=== PATIENT | female | born 1980 | race Caucasian/White ===

== ENCOUNTER 2017-04-29 11:17 | Day surgery (SDC) | payer OTHER ==
[2017-04-29] VITALS (10 sets, daily range): BP systolic 96–118; BP diastolic 43–68; PULSE 63–84; RESP 13–18; Ht 162.6 cm; Wt 80.1 kg
[~2017-04-29] VITALS: Ht 162.6 cm; Wt 80.1 kg
[~2017-04-29 11:17] MED LIST: CEPH-443 PO; HYDR-3498 PO
[2017-04-29] MEDS ORDERED: KETOROLAC 30 MG INJ IV PRN (12:30)
[2017-04-29] MEDS ORDERED: IBUPROFEN 600 MG TAB PO PRN (12:30)
--- NOTE | 2017-04-29 12:32 | PDOCDIS ---
Discharge Instructions CONDITION Patient Condition: Good HOME CARE INSTRUCTIONS: Diet Instructions: Regular ACTIVITY: Activity Restrictions: No Sexual Activity Bathing Restrictions: Shower FOLLOW UP/APPOINTMENTS Follow-up Plan Appointment clinic in 1 week for post D&C check SCHOOL/WORK RELEASE May return to School/Work with: No Restrictions NORTH LEW MD Apr 29, 2017 12:32
[2017-04-29] MEDS ORDERED: PROPOFOL 20 ML ONE (12:43)
[2017-04-29] MEDS ORDERED: ONDANSETRON 4 MG INJ ONE (12:44)
[2017-04-29] MEDS ORDERED: FENTAnyl 50 MCG/ML VIAL ONE (12:44)
[2017-04-29] MEDS ORDERED: MIDAZOLAM 1 MG/ML 2 ML INJ ONE (12:44)
[2017-04-29] MEDS ORDERED: KETOROLAC 30 MG INJ ONE (12:58)
[2017-04-29] MEDS ORDERED: METOCLOPRAMIDE 10 MG INJ ONE (12:58)
[2017-04-29] MEDS ORDERED: OXYTOCIN 10 UNIT INJ ONE ×2 (13:13→13:14)
[2017-04-29] MEDS ORDERED: EPHEDrine SULFATE 50 MG/5 ML SYG ONE (13:16)
--- NOTE | 2017-04-29 13:38 | OPR ---
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 Weighted speculum inserted into the vagina anterior cervical lip grasped with Suman tenaculum uterine cavity sounded measured 11 cm cervical dilatation further advanced with Hanks dilator, suction curettage performed by using Vacurette #9 which followed with medium-sized curette, all the specimen collected submitted to the pathology patient received 30 units of Pitocin during the procedure at the end of the procedure uterus was massaged it seemed to be firm, estimated blood loss approximately 50 cc,patient tolerated procedure well transferred to recovery room in good condition. Procedure Date: Apr 29, 2017 Preoperative Diagnosis Missed Postoperative Diagnosis Incomplete Operation Performed Dilatation and suction curettage Surgeon: NORTH LEW MD Anesthesia Type: general Anesthesiologist: APOLONIA GRIFFITH MD Estimated Blood Loss: 10 - 50 ml's Transfusion Required: yes Grafts/Implants: none Complications: no Pt Condition Post Procedure: stable Disposition: other (Same day surgery) Operative\Procedure Findings Products of conception Procedure Description Dilatation and suction curettage NORTH LEW MD Apr 29, 2017 13:32
== END 2017-04-29 15:25 | disposition home or self-care (01) ==
LOC: SDS 11:17
PROVIDERS: ATTEND Obstetrics & Gynecology
DX: O03.4 Incomplete spontaneous abortion without complication (principal)
CPT/HCPCS: 59812; 88305; J1885; J2250; J2405; J2590; J2765; J3010; Z7512; Z7610

== ENCOUNTER 2017-05-06 12:57 | Emergency (ER) | payer OTHER ==
[~2017-05-06] VITALS: Ht 157.5 cm; Wt 98.5 kg
[2017-05-06 13:04] VITALS: Ht 157.5 cm; Wt 98.5 kg
--- NOTE | 2017-05-06 15:33 | ERA ---
ER Documentation Chief Complaint Date/Time DATE: 05/06/17 TIME: 15:[address] X 2 DAYS HPI There is 6-year-old female presents with a chief complaint of sinus congestion, cough, pharyngitis 3 days. Patient has taken ibuprofen with minimal to moderate relief. Denies any recent travel. Complains of mild fever. Denies difficulty breathing, dysphagia, change in voice, drooling, fatigue, oral swelling, ear pain/discomfort, or meningismus. Denies drug use or alcohol abuse. Nursing notes have been reviewed and are consistent with history given. ROS All systems reviewed and are negative except as per history of present illness. Medications Home Meds Discontinued Scripts Hydrocodone Bit-Acetaminophen* (Erwin*) 5-325 Mg Tab, 1 TAB PO Q6 Y for PAIN, # 7 TAB Prov:JAYLENE QUAN DO 04/29/15 Cephalexin* (Keflex*) 500 Mg Capsule, 500 MG PO BID for 7 Days, CAP Prov:FRANKLIN AUSTIN 04/28/15 Allergies Allergies: Coded Allergies: No Known Allergy (Unverified , 04/29/17) PMhx/Soc Medical and Surgical Hx: pt denies Medical Hx, pt denies Surgical Hx History of Surgery: Yes (d&c) Anesthesia Reaction: No Hx Neurological Disorder: No Hx Respiratory Disorders: No Hx Cardiac Disorders: No Hx Psychiatric Problems: No Hx Miscellaneous Medical Probl: No Hx Alcohol Use: No Hx Substance Use: No Hx Tobacco Use: Yes (2 cigg daily) Smoking Status: Current some day smoker Physical Exam Vitals Vital Signs Date Time Temp Pulse Resp B/P Pulse Ox O2 Delivery O2 Flow Rate FiO2 05/06/17 13:04 99.1 88 18 117/78 96 Physical Exam Const: Healthy-appearing, well-nourished, well-developed, no acute distress. Throat: Tonsils and oropharynx within normal limits. No postnasal drip visualized. Moist mucous membranes. No sinus tenderness. Neck: No lymphadenopathy palpated. No posterior cervical lymphadenopathy, masses or goiter palpated. Trachea midline. Full range of motion. Supple. ~ No meningismus. Skin: No petechiae or rashes. No ulcer, induration, jaundice. Good turgor. Resp: No dyspnea, stridor, tripoding or drooling. Good air movement. Clear to auscultation bilaterally. Head: Normocephalic, Atraumatic. Eyes: Non-injected; No scleral erythema, discharge or foreign body. EOMI bilaterally. PERRLA. Ears: Normal External Ears, EACs clear, TM normal bilaterally without erythema. Nose: Normal nose without discharge, septal deviation, or sinus tenderness. Cardio: Regular rate and rhythm; No murmurs, gallops or rubs auscultated. No JVD grossly observed. Radial and posterior tibial pulses 2+ bilaterally. Capillary refill less than 2 seconds. Abd: Soft, non tender, non distended. No guarding, masses. Normal bowel sounds. No McBurney's point tenderness. MS: Normal motor strength, normal tone with gross examination. Back: No midline, flank or CVA tenderness. Ext: No cyanosis, edema or palpable cord. Normal movement of all extremities grossly observed. Neur: Awake, alert and oriented x3. Neurovascularly intact bilaterally. Psych: Normal Mood and Affect. Procedures/MDM Well-appearing otherwise healthy 36-year-old female presenting with a chief complaint of pharyngitis as described in the history and physical examination. Lungs were clear to auscultation. No concerning red flags for endangerment of the airway. Little suspicion for meningitis, little gingiva, acute epiglottitis , or other airway obstructive pathologies. Most likely diagnosis is viral pharyngitis. New Centor criteria 1 out of 5. Have suggested that the patient continue ibuprofen for fever and symptomatic control. I have spoke with the patient regarding their condition and future management. They have verbally responded that they understand their status and treatment plan. The patients vitals are stable, and their current condition is appropriate for discharge. The patient will be given discharge instructions with return precautions. Departure Diagnosis: Primary Impression: Sore throat Condition: Stable Patient Instructions: When You Have a Sore Throat Referrals: LUCY SANCHEZ MD (PCP) Additional Instructions: Follow up with your PCP within the next 1-3 days for a more thorough evaluation and a possible referral to a specialist. Return the the emergency department immediately if symptoms worsen or change. Continue medications as directed. NUZHAT HALL PA-C May 06, 2017 15:33
== END 2017-05-06 15:36 | disposition home or self-care (01) ==
LOC: FTE 12:57
DX: J02.9 Acute pharyngitis, unspecified (principal); F17.210 Nicotine dependence, cigarettes, uncomplicated
CPT/HCPCS: 99282

== ENCOUNTER 2017-09-24 05:56 | Emergency (ER) | END 2017-09-24 14:47 | disposition home or self-care (01) ==

== ENCOUNTER 2017-09-25 13:17 | Emergency (ER) | END 2017-09-25 14:35 | disposition home or self-care (01) ==

== ENCOUNTER 2017-12-09 10:47 | Emergency (ER) | END 2017-12-09 11:44 | disposition home or self-care (01) ==

== ENCOUNTER 2018-01-05 23:53 | Emergency (ER) | END 2018-01-06 01:46 | disposition left against medical advice (07) ==

== ENCOUNTER 2018-06-01 17:17 | Emergency (ER) | END 2018-06-01 21:40 | disposition home or self-care (01) ==

== ENCOUNTER 2018-07-19 14:15 | Emergency (ER) | END 2018-07-19 16:03 | disposition home or self-care (01) ==

== ENCOUNTER 2018-08-21 18:01 | Emergency (ER) | payer OTHER ==
[~2018-08-21] VITALS: Ht 167.6 cm; Wt 89.3 kg
[~2018-08-21 18:01] MED LIST changes: +BEN25 PO; +BEN50 PO; -CEPH-443 PO; -HYDR-3498 PO; +KETO5DRO71 OP; +NAPR-985 PO
[2018-08-21 18:05] VITALS: Ht 167.6 cm; Wt 89.3 kg
[2018-08-21] MEDS ORDERED: SOD CHLORIDE 0.9% 1,000 ML IV STA (19:22)
[2018-08-21] MEDS ORDERED: ACETAMINOPHEN 325 MG TAB PO STA (19:22)
[2018-08-21 20:49] VITALS: BP 108/57; PULSE 74; RESP 18
--- NOTE | 2018-08-22 01:01 | ERD ---
ER Documentation Chief Complaint Chief Complaint Complains of vag bleed and 12 weeks HPI This patient is a 37-year-old female with no significant medical history who is currently AB 2, last menstrual cycle of May 30, 2018, reportedly 12 weeks , presenting to the emergency department complaining of vaginal bleeding which began today, 2 hours prior to arrival. She also reports suprapubic pain which is intermittent and rated 3/10 in severity. She took the medication for relief of symptoms. She denies any fevers, abdominal pain, urinary symptoms, or other symptoms at this time. ROS All systems reviewed and are negative except as per history of present illness. Medications Home Meds Active Scripts Naproxen* (Naprosyn*) 500 Mg Tablet, 500 MG PO BID PRN for PAIN AND/OR INFLAMMATION, #30 TAB Prov:FAISAL SHARMA PA-C 06/01/18 Diphenhydramine Hcl* (Benadryl*) 50 Mg Cap, 50 MG PO Q6H PRN for ITCHING/RASH, #30 CAP Prov:FAISAL SHARMA PA-C 06/01/18 Diphenhydramine Hcl* (Benadryl*) 25 Mg Cap, 25 MG PO Q6 PRN for ITCHING/RASH, #30 TAB Prov:BARRIE ALMONTE PA-C 12/09/17 Ketotifen Fumarate (ZADITOR) 5 Ml Drops, 5 ML OP Q4, #1 BOTTLE Prov:BARRIE ALMONTE PA-C 12/09/17 Diphenhydramine Hcl* (Benadryl*) 25 Mg Cap, 25 MG PO Q6, #10 CAP Prov:ALEXANDRE ROGERS MD 09/25/17 Allergies Allergies: Coded Allergies: No Known Allergy (Unverified , 09/24/17) PMhx/Soc History of Surgery: Yes (d&c, R wrist carpal tunnel) Anesthesia Reaction: No Hx Neurological Disorder: No Hx Respiratory Disorders: No Hx Cardiac Disorders: No Hx Psychiatric Problems: No Hx Miscellaneous Medical Probl: No Hx Alcohol Use: No Hx Substance Use: Yes (UNKNOWN WHAT KIND. ) Hx Tobacco Use: Yes (2 cigg daily) Smoking Status: Never smoker FmHx Family History: No diabetes Physical Exam Vitals Vital Signs Date Temp Pulse Resp B/P (MAP) Pulse Ox O2 O2 Flow FiO2 Time Delivery Rate 08/21/18 98.3 74 18 108/57 97 Room Air 20:49 (74) 08/21/18 98.1 96 20 121/57 97 18:05 (78) Physical Exam Const: No acute distress Head: Atraumatic Eyes: Normal Conjunctiva ENT: Normal External Ears, Nose and Mouth. Neck: Full range of motion. No meningismus. Resp: Clear to auscultation bilaterally Cardio: Regular rate and rhythm, no murmurs Abd: Soft, non tender, non distended. Normal bowel sounds. No significant suprapubic or pelvic tenderness to palpation. No McBurney's point tenderness. No rebound tenderness or guarding. Skin: No petechiae or rashes Ext: No cyanosis, or edema Neur: Awake and alert Psych: Normal Mood and Affect Result Diagram: 08/21/181939 Results 24 hrs Laboratory Tests Test 08/21/18 19:40 White Blood Count 10.0 10^3/ul Red Blood Count 4.31 10^6/ul Hemoglobin 12.8 g/dl Hematocrit 38.1 % Mean Corpuscular Volume 88.4 fl Mean Corpuscular Hemoglobin 29.7 pg Mean Corpuscular Hemoglobin Concent 33.6 g/dl Red Cell Distribution Width 12.5 % Platelet Count 323 10^3/UL Mean Platelet Volume 9.5 fl Immature Granulocytes % 0.400 % Neutrophils % 68.1 % Lymphocytes % 21.0 % Monocytes % 7.5 % Eosinophils % 2.7 % Basophils % 0.3 % Nucleated Red Blood Cells % 0.0 /100WBC Immature Granulocytes # 0.040 10^3/ul Neutrophils # 6.8 10^3/ul Lymphocytes # 2.1 10^3/ul Monocytes # 0.8 10^3/ul Eosinophils # 0.3 10^3/ul Basophils # 0.0 10^3/ul Nucleated Red Blood Cells # 0.0 10^3/ul Urine Color YELLOW Urine Clarity CLEAR Urine pH 6.0 Urine Specific [place] 1.029 Urine Ketones TRACE mg/dL Urine Nitrite NEGATIVE mg/dL Urine Bilirubin NEGATIVE mg/dL Urine Urobilinogen NEGATIVE mg/dL Urine Leukocyte Esterase NEGATIVE Ramirez/ul Urine Microscopic RBC 123 /HPF Urine Microscopic WBC 2 /HPF Urine Mucus FEW /HPF Urine Hemoglobin 3+ mg/dL Urine Glucose NEGATIVE mg/dL Urine Total Protein NEGATIVE mg/dl Beta HCG, Quantitative 57574.0 mIU/ml Current Medications Medications Dose Sig/Katelynn Start Time Status Last (Trade) Ordered Route PRN Stop Time Admin Dose Reason Admin Sodium 1,000 ml @ Q1H STAT 08/21/18 DC 08/21/18 Chloride 1,000 mls/hr IV 19:22 19:40 08/21/18 20:21 650 mg ONCE STAT 08/21/18 DC 08/21/18 Acetaminophen PO 19: 19:40 (Tylenol 08/21/18 Tab) 19:24 [place] [id number] Radiology Main Line: [phone] DIAGNOSTIC IMAGING REPORT Patient: SHARI BRODY : 1980 Age: 37 Sex: F MR #: [id number] DOS: 08/21/18 0000 Ordering MD: FAISAL SHARMA PA-C Location: [facility] Room/Bed: PROCEDURE: US Obstetrical 1st Trimester twin CLINICAL INDICATION: Vaginal bleeding and TECHNIQUE: Multiple real-time images were acquired of the patient's maternal abdomen utilizing a curved array transducer. COMPARISON: None FINDINGS: There is a well implanted gestational sac within the fundus of the uterus. There are twin intrauterine gestations of variable presentation. There appears to be a membrane the amniotic sacs. A single placenta is identified position posteriorly and posterolaterally to the right. Placenta is grade 0. There is no evidence of abruptio. There appears to be sufficient amniotic fluid in each amniotic sac. The heart rate for twin A is 141 bpm, for a twin B 168 bpm. The crown rump length for it twin A measures 7.46 cm corresponding to a gestational age of 13 weeks 4 days plus or minus 1 week. The crown-rump length for twin B measures 6.64 cm which corresponds to a gestational age of 13 weeks 0 days plus or minus 1 week. Neither ovary was identified. No adnexal mass or free fluid is identified IMPRESSION: 1. Live twin intrauterine gestations which appear diamniotic and monochorionic and/or variable in presentation. 2. Posterior/right lateral placenta, grade 0. 3. Twin A is the size of the average fetus at 13 weeks 4 days plus or minus 1 week. 4. Twin B is the size of the average fetus at 13 weeks 0 days plus or minus 1 week. 5. The estimated date of delivery based on today's sonogram is 02/26/2019. Physician Nathaniel Date Time Electronically viewed and signed by Danna Mauro Physician on 08/21/2018 20:12 RH/ CC: FAISAL SHARMA PA-C [phone] Procedures/MDM This patient is a 37-year-old female presenting to the emergency department complaining of vaginal bleeding and some suprapubic pain. The patient was administered Tylenol in the department with good response. Obstetrics ultrasound showed live twin intrauterine gestations with heart tones pres ent. The full report from the radiologist may be reviewed above. Patient's history, physical examination, workup most consistent with threatened . Beta hCG was consistent with term of . Low suspicion for ectopic , tubo-ovarian abscess, ovarian torsion, PID, sepsis, or other emergencies. Patient will be discharged home with strict return precautions and instructions to follow-up with her [facility] physician within the next 24-48 hours. The patient agreed with the diagnosis, plan, need for follow-up, return precautions. Departure Diagnosis: Primary Impression: Threatened Condition: Fair Patient Instructions: Possible Miscarriage (Threatened ) Referrals: [facility] [place] [address] [facility] [address] [place], [place] [phone] OFFICE FAX [facility]ABUS[facility] [address] [place] [address] [address] MURPHY [place] [address] [place], [place] [phone] [place] [address] [facility], [address] [id number] [address] [address] [place], [place] [phone] [facility] [place] [address] [place], [place] [id number] [address] [facility] [id number] - [address] ISABEL, CORIE [address], [facility] [phone] DR SCHAEFFER, MARCUS [address] [facility]. [address], [facility] [address] [address] [facility] [address] [place], [place] [phone] Additional Instructions: Call your primary care doctor TOMORROW for an appointment during the next 1-2 days.See the doctor sooner or return here if your condition worsens before your appointment time. FAISAL SHARMA PA-C Aug 22, 2018 01:01
== END 2018-08-21 20:50 | disposition home or self-care (01) ==
LOC: FTE 18:01
DX: O20.0 Threatened abortion (principal); Z3A.12 12 weeks gestation of pregnancy
CPT/HCPCS: 36415; 76801; 81001; 84702; 85025; 86900; 86901; J7030; Z7502; Z7610

== ENCOUNTER 2019-02-02 07:09 | Inpatient (IN) | payer OTHER ==
[~2019-02-02] VITALS: Ht 160 cm; Wt 103.4 kg
[2019-02-02 07:35] VITALS: Ht 160 cm; Wt 103.4 kg
[2019-02-02 07:36] VITALS: BP 108/70; PULSE 85; RESP 18
[2019-02-02] MEDS ORDERED: PNV11TAB PO (07:39)
[2019-02-02] MEDS ORDERED: AZITHROMYCIN 500 MG in SOD CHLORIDE 0.9% 250 ML IVPB ONE ×2 (08:30→09:00)
[2019-02-02] MEDS ORDERED: MISOPROSTOL 200 MCG TAB PR PRN ×2 (08:30→11:00)
[2019-02-02] MEDS ORDERED: OXYTOCIN 30 UNITS/LR 500 ML IV PRN ×2 (08:30→11:00)
[2019-02-02] MEDS ORDERED: CEFAZOLIN 2 GM/50 ML (PMX) 50 ML IVPB SCH (08:30)
[2019-02-02] MEDS ORDERED: METHYLERGONOVINE 0.2 MG INJ IM PRN ×2 (08:30→11:00)
[2019-02-02] MEDS ORDERED: CARBOPROST 250 MCG INJ IM PRN ×2 (08:30→11:00)
[2019-02-02] MEDS: LACTATED RINGER'S 1,000 ML IV SCH ×2 (08:44→09:15)
--- NOTE | 2019-02-02 08:52 | PREOPHP ---
DATE OF ADMISSION: 02/02/2019 HISTORY OF PRESENT ILLNESS: Ms. Eboni Ya is a 38-year-old 8, para 5, EDC 02/24/2019 intrauterine at 36 weeks and 6 days gestational age, presented to triage complaining of co ntractions. She is currently twin gestation. She had an ultrasound performed on 01/21/2019. Baby A is vertex and baby B is breech with an estimated weight of 2516 grams baby A, and the current is Rachid. Her care took place with Dr. Philip. PAST MEDICAL HISTORY: None. MEDICATIONS: vitamins. PAST SURGICAL HISTORY: None. OBSTETRIC HISTORY: x5 vaginal deliveries, x2 missed AB. GYNECOLOGIC HISTORY: 12, regular 3 to 4 days. She denies any sexually transmitted infections. Sexu ally active with 1 partner. SOCIAL HISTORY: She denies any smoking, drugs or alcohol. FAMILY HISTORY: None. REVIEW OF SYSTEMS: All within normal except history of present illness. PHYSICAL EXAMINATION: HEENT: Within normal. LUNGS: CTA bilateral. CARDIOVASCULAR: S1, S2, regular rhythm. ABDOMEN: Gravid, nontender. Negative CVA bilateral. EXTREMITIES: Negative edema. No calf tenderness. PELVIC: Vaginal exam 3, 50, -2, intact. heart tracing for baby A category 1 and for baby B ca tegory 2 total. Old [place]; regular contractions. ASSESSMENT: Intrauterine at 36 weeks and 6 days, twin gestation Rachid, in labor. PLAN: Consent for a primary . Risks, benefits and alternatives were explained. All questi ons were answered. Dictated By: NUZHAT NY MD ME/NTS Conf#: [id number] DID#: [id number] CC: NORTH LEW MD;*EndCC*
--- NOTE | 2019-02-02 09:09 | PREAC ---
Date/Time of Note Date/Time of Note DATE: 02/02/19 TIME: 09:08 Anesthesia Eval and Record Evaluation Time Pre-Procedure Interview DATE: 02/02/19 TIME: 09:08 Age 38 Sex female NPO: 8 hrs Preoperative diagnosis twins gestation Planned procedure primary c/s Past Medical History Past Medical History: Includes GI: Obesity Surgery & Anesthesia Issues No known issue Meds Anticoagulation: No Beta Erick within 24 hr: No Reason Beta Erick not given: Pt. not on B-Erick Active Scripts Naproxen* (Naprosyn*) 500 Mg Tablet, 500 MG PO BID PRN for PAIN AND/OR INFLAMMATION, #30 TAB Prov:FAISAL SHARMA PA-C 06/01/18 Diphenhydramine Hcl* (Benadryl*) 50 Mg Cap, 50 MG PO Q6H PRN for ITCHING/RASH, #30 CAP Prov:FAISAL SHARMA PA-C 06/01/18 Diphenhydramine Hcl* (Benadryl*) 25 Mg Cap, 25 MG PO Q6 PRN for ITCHING/RASH, #30 TAB Prov:BARRIE ALMONTE PA-C 12/09/17 Ketotifen Fumarate (ZADITOR) 5 Ml Drops, 5 ML OP Q4, #1 BOTTLE Prov:BARRIE ALMONTE PA-C 12/09/17 Diphenhydramine Hcl* (Benadryl*) 25 Mg Cap, 25 MG PO Q6, #10 CAP Prov:ALEXANDRE ROGERS MD 09/25/17 Reported Medications [id number] ( 19) 1 Each Tablet, 1 TAB PO DAILY, TAB 02/02/19 Current Medications Lactated Ringer's 1,000 ml @ 125 mls/hr Q8H IV Last administered on 02/02/19at 08:44; Admin Dose 125 MLS/HR; Start 02/02/19 at 08:24 Cefazolin Sodium/ Dextrose 50 ml @ 100 mls/hr ONCE IVPB ; Start 02/02/19 at 08:30 Oxytocin/Lactated Ringer's 500 ml @ 0 mls/hr ONCE PRN IV .VAGINAL BLEEDING; Start 02/02/19 at 08:30 Methylergonovine Maleate (Methergine) 0.2 mg ONCE PRN IM .VAGINAL BLEEDING; Start 02/02/19 at 08:30 Carboprost Tromethamine (Hemabate) 250 mcg ONCE PRN IM .VAGINAL BLEEDING; Start 02/02/19 at 08:30 Misoprostol (Cytotec) 1,000 mcg ONCE PRN [place] .VAGINAL BLEEDING; Start 02/02/19 at 08:30 Azithromycin 500 mg/Sodium Chloride 250 ml @ 250 mls/hr NOW ONCE IVPB ; Start 02/02/19 at 08:30; Stop 02/02/19 at 09:29 Oxytocin/Lactated Ringer's 500 ml @ 125 mls/hr POST IV ; Start 02/02/19 at 09:00 Meds reviewed: Yes Allergies Coded Allergies: No Known Allergy (Unverified , 09/24/17) Allergies Reviewed: Yes Labs/Studies Labs Reviewed: Reviewed by anesthesiologist Result Diagram: 02/02/19 0830 Laboratory Tests 02/02/19 08:30 test: Positive Pre-procedure Exam Last vitals Vital Signs Date Temp Pulse Resp B/P (MAP) Pulse Ox O2 O2 Flow FiO2 Time Delivery Rate 02/02/19 97.7 85 18 108/70 07:36 (83) Airway: Adequate mouth opening, Adequate thyromental dist Mallampati: Mallampati II Teeth: Normal Lung: Normal Heart: Normal ASA Physical Status ASA physical status: 2 Emergency: None Planned Anesthetic Neuraxial: Spinal Planned Pain Management Sub-arachniod narcotics Pre-operative Attestations Prior to commencing anesthesia and surgery, the patient was re-evaluated, there was verification of: *The patient's identity *The results of appropriate recent lab work and preoperative vital signs *The above evaluation not changing prior to induction *Anesthetic plan, risk benefits, alternative and complications discussed with patient/family; questions answered; patient/family understands, accepts and wishes to proceed. JOSE CESAR Feb 02, 2019 09:09
[2019-02-02] MEDS ORDERED: METOCLOPRAMIDE 10 MG INJ IV PRN (09:30)
[2019-02-02] MEDS ORDERED: METHYLERGONOVINE 0.2 MG INJ ONE ×2 (09:30→20:00)
[2019-02-02] MEDS ORDERED: HYDROmorphONE 0.5 MG/0.5 ML SYG IV PRN (09:30)
[2019-02-02] MEDS ORDERED: ONDANSETRON 4 MG INJ IV PRN ×2 (09:30)
[2019-02-02] MEDS ORDERED: EPHEDrine 25 MG/5 ML SYG ONE (09:30)
[2019-02-02] MEDS ORDERED: OXYTOCIN 30 UNITS/LR 500 ML BAG IV ONE (09:30)
[2019-02-02] MEDS ORDERED: FENTAnyl 50 MCG/ML VIAL IV PRN ×3 (09:30)
[2019-02-02] MEDS ORDERED: KETOROLAC 30 MG INJ IV PRN (09:30)
[2019-02-02] MEDS ORDERED: CEFAZOLIN 1 GM INJ ONE (09:30)
[2019-02-02] MEDS ORDERED: PHENYLephrine (100 MCG/ML) 5ML SYG ONE (09:30)
[2019-02-02] MEDS ORDERED: NALOXONE (0.4 MG/ML) INJ IV PRN (09:30)
[2019-02-02] MEDS ORDERED: HYDROmorphONE 1 MG/5 ML IV SYRINGE IV PRN ×3 (09:30)
[2019-02-02] MEDS ORDERED: DIPHENHYDRAMINE 50 MG INJ IV PRN ×2 (09:30)
[2019-02-02] MEDS ORDERED: ALBUTEROL 0.083% (NEB) 2.5 MG/3 ML AMP HHN PRN (09:30)
[2019-02-02] MEDS ORDERED: morphine SULFATE/PF (10 MG/10 ML) INJ ONE (09:37)
--- NOTE | 2019-02-02 10:39 | OPPN ---
Date/Time of Note Date/Time of Note DATE: 02/02/19 TIME: 10:36 Operative Report Planned Procedure Procedure date Feb 02, 2019 Procedure(s) primary low transverse CD Performed by see signature line Kieselguhr Regenerator Operator: CLAUDIA SHAIKH MD 2nd Kieselguhr Regenerator Operator none Anesthesiologist: JOSE CESAR Pre-procedure diagnosis Intrauterine at 36 weeks and 6 days, twin gestation Rachid, in labor. desires elective CD [id number] Anesthesia Type: [id number] spinal Post-Procedure Post-procedure diagnosis same Findings baby A: a viable female 9/9 weight 2,320 grams, vtx presentation baby B: a viable male 9/9, weight 3,125 grams vtx presentation nomal uterus tubes and ovaries Estimated Blood Loss: 500 - 600 mls (500) Specimen(s) placenta Grafts/Implant(s) none Complication(s) none NUZHAT NY MD Feb 02, 2019 10:39
[2019-02-02] MEDS ORDERED: OXYTOCIN 30 UNITS/LR 500 ML IV SCH (10:40)
[2019-02-02] MEDS: OXYTOCIN 30 UNITS/LR 500 ML IV SCH ×2 (10:47→15:01)
[2019-02-02] MEDS ORDERED: NACL 0.9% 3 ML SYG IV SCH (11:00)
[2019-02-02] MEDS: CEFAZOLIN 2 GM/50 ML (PMX) 50 ML IVPB SCH ×2 (11:00→17:17)
--- NOTE | 2019-02-02 13:22 | PAC ---
Date/Time of Note Date/Time of Note DATE: 02/02/19 TIME: 13:22 Post-Anesthesia Notes Post-Anesthesia Note Last documented vital signs Vital Signs Date Temp Pulse Resp B/P (MAP) Pulse Ox O2 O2 Flow FiO2 Time Delivery Rate 02/02/19 97.7 85 18 108/70 07:36 (83) Activity: WNL Respiratory function: WNL Cardiovascular function: WNL Mental status: Baseline Pain reasonably controlled: Yes Hydration appropriate: Yes Nausea/Vomiting absent: Yes JOSE CESAR Feb 02, 2019 13:22
[2019-02-02 14:50] VITALS: BP 108/63; PULSE 76; RESP 16
[2019-02-02 16:00] VITALS: BP 105/76; PULSE 83; RESP 16
[2019-02-02] MEDS: HYDROmorphONE 0.5 MG/0.5 ML SYG IV PRN (17:18)
[2019-02-02 19:55] VITALS: BP 102/55; PULSE 92; RESP 19
--- NOTE | 2019-02-02 21:57 | OPR ---
DATE OF OPERATION: 02/02/2019 PRIMARY DIAGNOSES: Intrauterine at 36 weeks and 6 days gestational age with dichorionic an d diamniotic twin gestation and labor, desires elective delivery. POSTOPERATIVE DIAGNOSES: Intrauterine at 36 weeks and 6 days gestational age with dichorio americo and diamniotic twin gestation and labor, desires elective delivery. PROCEDURE: Primary low transverse delivery. SURGEON: Jad Randhawa MD OPERATION SPECIALIST: Jose Pickett MD ANESTHESIA: Spinal. COMPLICATIONS: None. ESTIMATED BLOOD LOSS: 500 mL FINDINGS: Baby A viable female, 9 and 9 respectively at 1 and 5 minutes, weight 2320 grams in vertex presentation. Baby B viable male, 9 and 9 respectively at 1 and 5 minutes, weight 3125 grams in vertex presentation. Normal uterus, tubes and ovaries. DESCRIPTION OF PROCEDURE: After explaining the risks, benefits and alternatives, the patient had con sent signed in chart. The patient was taken to the operating room where spinal anesthesia was found to be adequate. She was then prepared and draped in normal sterile fashion in dorsal supine position with a leftward tilt. Pfannenstiel skin incision was then made with a scalpel and carried to the un derlying of the fascia. The fascia was incised in midline, incision was extended laterally with Trejo scissors. The superior aspect of the fascial incision was grasped with curved clamps, elevated and the underlying rectus muscles dissected off bluntly. Attention was then turned to the inferior aspec t of incision, which in similar fashion was grasped, tented up with curved clamps and the rectus musc le dissected off bluntly. The rectus muscles were in midline, peritoneum identified, tente d up, and entered sharply with Metzenbaum scissors. The peritoneal incision was extended superiorly with good visualization of the bladder. At this point, the bladder blade was then inserted and the l ower uterine segment was incised in a transverse fashion with a scalpel. The uterine incision was ex tended laterally. The bladder blade was removed. The baby A head was delivered atraumatically. The nose and mouth were suctioned and handed off to awaiting NICU team. Similarly, baby B, the infant's head was delivered atraumatically. The nose and mouth were suctioned and cord clamped and cut and h anded off to awaiting NICU team. The placenta was then removed and sent to pathology. The uterus wa s exteriorized and cleared of all clots and debris. The uterine incision was repaired with 1-0 chrom ic in a running locked fashion. Second layer of the same suture was used for imbrication and obtaine d excellent hemostasis. The uterus was returned to the abdomen. The gutters were cleared of all neida ts. The peritoneum and rectus abdominis muscles were reapproximated with 3-0 Vicryl in an interrupte d fashion. The fascia was reapproximated with 0 Vicryl in a running fashion. The subcutaneous tissu e was reapproximated with 2-0 plain gut in a running fashion. The skin was closed with absorbable st aples. The patient tolerated procedure well. Sponge, lap and needle counts correct. The patient wa s taken to recovery room in stable condition. Dictated By: JAD HIGH/RENETTA Conf#: [id number] DID#: [id number]
[2019-02-03] VITALS: BP 110/58; PULSE 88; RESP 18
[2019-02-03] MEDS: CEFAZOLIN 2 GM/50 ML (PMX) 50 ML IVPB SCH ×2 (01:18→09:02)
[2019-02-03] MEDS: HYDROmorphONE 0.5 MG/0.5 ML SYG IV PRN (01:18)
[2019-02-03] MEDS: KETOROLAC 30 MG INJ IV PRN ×2 (02:54→08:46)
[2019-02-03 03:30] VITALS: BP 109/59; PULSE 86; RESP 18
[2019-02-03] MEDS: LACTATED RINGER'S 1,000 ML IV SCH ×2 (06:19→13:30)
[2019-02-03 08:46] VITALS: BP 104/56; PULSE 87; RESP 18
[2019-02-03] MEDS ORDERED: OXYCODONE/ACETAMINOPHEN (5/325) TAB PO PRN (10:00)
[2019-02-03] MEDS: OXYCODONE/ACETAMINOPHEN (5/325) TAB PO PRN (14:13)
[2019-02-03 17:03] VITALS: BP 100/54; PULSE 82; RESP 18
[2019-02-03] MEDS: IBUPROFEN 600 MG TAB PO SCH ×2 (17:13→23:57)
--- NOTE | 2019-02-03 19:02 | QN ---
Documentation Comment progress note pod 1 patient was seen and evaluated no complaints vs stable afebrile ab dressing clean/dry no distention, nt extremity no edema no calf tenderness a/ sp cd pod 1 stable afebrile p/ encourage ambulation NUZHAT NY MD Feb 03, 2019 19:02
[2019-02-03 20:02] VITALS: BP 119/64; PULSE 80; RESP 18
[2019-02-04 04:10] VITALS: BP 107/58; PULSE 79; RESP 18
[2019-02-04] MEDS: IBUPROFEN 600 MG TAB PO SCH ×4 (06:44→23:53)
[2019-02-04 08:00] VITALS: BP 116/60; PULSE 75; RESP 18
[2019-02-04 16:00] VITALS: BP 120/77; PULSE 77; RESP 18
[2019-02-04 20:00] VITALS: BP 111/62; PULSE 85; RESP 18
--- NOTE | 2019-02-04 20:03 | QN ---
Documentation Comment progress note pod 2 patient was seen and evaluated no complaints vs stable afebrile ab c/d/i no distention nt extremity no edema no calf tenderness a/ sp cd pod 2 stable afebrile p/ discharge home tomorrow NUZHAT [place] MD Feb 04, 2019 20:03
--- NOTE | 2019-02-04 20:04 | PD.PPDC ---
FRONT END ALIGNMENT SPECIALIST Discharge Instruction Condition Qhnbs2Ut Patient Condition: Fatwn6t Good Diet Bhakw2Lq Diet: Vatnl5x Resume Regular Diet Activity/Restrictions Rppji0Ca Activity: Kqjwb5x Normal Activity May Shower [id number] Restrictions: Pbcih3k No Exercising No Lifting No Driving No Sexual Activity Nothing in the Vagina No [place] No Tampons, douche Follow-up Follow-up with Physician: 2, Week/Weeks Return to clinic for Flumh5Io [employer] RE[employer]DER Instructions: Ebuwj1a Fever greater than 101 Chills Worsening abdominal pain Excessive Vaginal Bleeding More than 2 pads per hour Unable to tolerate diet [id number] OB Instructions: Qcydh3q Breast Tenderness Depression Blurried Vision Headache [id number] Surgical Instructions: Dqvns1v Incisional Drainage Incisional Redness NUZHAT [place] MD Feb 04, 2019 20:04
[2019-02-04] MEDS: OXYCODONE/ACETAMINOPHEN (5/325) TAB PO PRN (22:12)
--- NOTE | 2019-02-05 01:34 | DS ---
DATE OF ADMISSION: 02/02/2019 DATE OF DISCHARGE: 02/05/2019 PRIMARY DIAGNOSIS: Intrauterine at 36 weeks and 6 days gestational age with dichorionic di amniotic twin gestation, labor, desires elective delivery. PROCEDURE: Primary low transverse delivery. CONDITION ON DISCHARGE: Stable. ACTIVITY: None per vagina, no lifting x6 weeks. DIET: Regular. MEDICATIONS ON DISCHARGE: 1. Motrin. 2. Iron. 3. Colace. DISCHARGE SUMMARY: Ms. Eboni Ya underwent a primary delivery on 02/02/2019. She h ad a twin gestation, with a Baby-A viable female, 9 and 9 respectively at 1 and 5 minutes, weig ht 2320 grams in vertex presentation. Baby-B viable male, 9 and 9 respectively at 1 and 5 live angela, weight 3125 grams in vertex presentation. She had an uneventful postop day 1 and 2. She was di scharged home on postop day 3. Her incision is clean, dry and intact. She has ambulating, toleratin g diet, positive flatulence, positive bowel movement. She will follow up in the clinic in two weeks for /postop care. Dictated By: NUZHAT [place] MD ME/NTS Conf#: [id number] DID#: [id number] CC: KEN TAVAREZ DO; NORTH LEW MD; GITA CORREA MD; CLIFTON LAUREN MD; ALEXANDRE HAMMOND MD; DARCY WHITE M.D.; LORA GLASS MD; JAYLENE QUAN DO; GONZALEZ THURMAN MD; THEO MUNOZ M.D.;*EndCC*
[2019-02-05 04:30] VITALS: BP 110/60; PULSE 85; RESP 18
[2019-02-05] MEDS: IBUPROFEN 600 MG TAB PO SCH ×2 (05:46→12:47)
[2019-02-05] MEDS: OXYCODONE/ACETAMINOPHEN (5/325) TAB PO PRN (06:15)
[2019-02-05 09:55] VITALS: BP 115/62; PULSE 68; RESP 18
[2019-02-05] MEDS ORDERED: DIPHTH/TET/ACEL PERTUSS (ADULT) 0.5 ML VIAL IM* ONE (14:30)
--- NOTE | 2019-02-06 16:59 | DELSUM ---
Delivery Summary A-C Datetime Report Generated by CPN: 02/06/2019 16:59 DELIVERY PERSONNEL Dope Mixer: [place], May MATERNAL INFORMATION Delivery Anesthesia: Spinal Medications in Delivery: SEE ANESTHESIA RECORD Placenta Cultured: No Maternal Complications: Other Other Maternal Complications: [place] LABOR SUMMARY EDC: 03/06/2019 00:00 No. Babies in Womb: 1 Attempted: No Labor Anesthesia: None LABOR INFORMATION Reason for Induction: Not Applicable Onset of Labor: 02/02/2019 05:00 Oxytocin: N/A Group B Beta Strep: Not Done Antibiotics # of Doses: 2 Antibiotics Time of Last Dose: 02/02/2019 09:46 Steroids Given: None Reason Steroids Not Administered: Not Applicable MEMBRANES Membranes Rupture Method: Artificial Rupture of Membranes: 02/02/2019 09:59 Length of Rupture (hr): 0.00 Amniotic Fluid Color: Clear Amniotic Fluid Amount: Large Amniotic Fluid Odor: None STAGES OF LABOR Stage 3 hr: 0 Stage 3 min: 3 Total Time in Labor hr: 5 Total Time in Labor min: 2 CSECTION DELIVERY Primary Indication: Multiple Gestation Secondary Indication: N/A CSection Urgency: Non Elective CSection Incidence: Primary Labor: Labor Elective: Nonelective CSection Incision: Lower Uterine Transverse BABY A INFORMATION Delivery Date/Time: 02/02/2019 09:59 Method of Delivery: Born in Route : No : N/A Forceps: N/A Vacuum Extraction: N/A Shoulder Dystocia : N/A SHOULDER DYSTOCIA BABY A Delivery Date/Time: 02/02/2019 09:59 PRESENTATION/POSITION BABY A Presentation: Cephalic Cephalic Presentation: Vertex Vertex Position: Left Occipital Anterior Breech Presentation: N/A PLACENTA INFORMATION BABY A Placenta Delivery Time : 02/02/2019 10:02 Placenta Method of Delivery: Manual Removal Placenta Status: Delivered SCORES BABY A Heart Rate 1 min: >100 bpm Resp Effort 1 min: Good Cry Reflex Irritability 1 min: Cough/Sneeze/Pulls Away Muscle Tone 1 min: Active Motion Color 1 min: Body [place], Extremit Blue Resuscitation Effort 1 min: Tactile Stimulation SCORE 1 MIN: 9 Heart Rate 5 min: >100 bpm Resp Effort 5 min: Good Cry Reflex Irritability 5 min: Cough/Sneeze/Pulls Away Muscle Tone 5 min: Active Motion Color 5 min: Body [place], Extremit Blue Resuscitation Effort 5 min: Tactile Stimulation SCORE 5 MIN: 9 INFANT INFORMATION BABY A Gestational Age at Delivery: 36.6 Gestational Status: Late - 34- 36.6 Weeks Infant Outcome : Liveborn Infant Condition : Stable Sex: Female IDENTIFICATION/MEDS BABY A ID Band Number: [id number] ID Band Location: Right Leg; Left Arm Sensor Applied: Yes Sensor Number: [id number] Sensor Location : Cord Clamp Vitamin K Given : Not Given Erythromycin Given: Not Given WEIGHT/LENGTH BABY A Birthweight (gm): 2320 Infant Weight (lb): 5 Infant Weight (oz): 2 Length (in): 18.50 Length (cm): 46.99 CORD INFORMATION BABY A No. Cord Vessels: 3 Nuchal Cord : N/A Cord Blood Taken: Yes Infant Suction: Mouth; Nose ASSESSMENT BABY A Complications: None Physical Findings at Delivery: Within Normal Limits Infant Respirations: Appears Normal Life Skills Teacher/ALS Called : No Infant Care By: TAHIRA/JOVITA Transferred To: Remains with Mother BABY B INFORMATION Delivery Date/Time: 02/02/2019 10:01 Method of Delivery : Born in Route : No : N/A Forceps : N/A Vacuum Extraction: N/A Shoulder Dystocia : N/A SHOULDER DYSTOCIA BABY B Delivery Date/Time: 02/02/2019 10:01 PRESENTATION/POSITION BABY B Presentation : Cephalic Cephalic Position : Vertex Vertex Position: Rt Occipital Transverse Breech Position: N/A ROM/PLACENTA INFO BABY B Rupture of Membranes: 02/02/2019 10:01 Length of Rupture (hr): 0.00 Placenta Delivery Time : 02/02/2019 10:02 Placenta Method of Delivery: Manual Removal Placental Status : Delivered SCORES BABY B Heart Rate 1 min: >100 bpm Resp Effort 1 min: Good Cry Reflex Irritability 1 min: Cough/Sneeze/Pulls Away Muscle Tone 1 min: Active Motion Color 1 min: Body [place], Extremit Blue Resuscitation Effort 1 min: Tactile Stimulation SCORE 1 MIN: 9 Heart Rate 5 min: >100 bpm Resp Effort 5 min: Good Cry Reflex Irritability 5 min: Cough/Sneeze/Pulls Away Muscle Tone 5 min: Active Motion Color 5 min: Body [place], Extremit Blue Resuscitation Effort 5 min: Tactile Stimulation SCORE 5 MIN: 9 INFANT INFORMATION BABY B Gestational Age at Delivery: 36.6 Gestational Status : Late - 34- 36.6 Weeks Infant Outcome : Liveborn Condition : Stable Infant Sex : Male IDENTIFICATION/MEDS BABY B ID Band Number : [id number] ID Band Location : Right Leg; Left Arm Sensor Applied: Yes Sensor Number : [id number] Sensor Location : Cord Clamp Vitamin K Given : Not Given Erythromycin Given : Not Given WEIGHT/LENGTH BABY B Infant Birthweight (gm): 3125 Weight (lb) : 6 Weight (oz): 14 Length (in): 20.50 Length (cm): 52.07 CORD INFORMATION BABY B No. Cord Vessels : 3 Nuchal Cord : N/A Cord Blood Taken : Yes Suction : Mouth; Nose ASSESSMENT BABY B Infant Complications : None Physical Findings at Delivery: Within Normal Limits Respirations : Appears Normal Life Skills Teacher/ALS Called : No Infant Care By : TAHIRA/INEZ Transfer To: Remains with Mother
--- NOTE | 2019-02-09 11:29 | CONS ---
Consultation Date/Type/Reason Admit Date/Time Feb 02, 2019 at 08:20 Initial Consult Date Type of Consult anesthesia Reason for Consultation follow up Date/Time of Note DATE: 02/09/19 TIME: 11:28 24 HR Interval Summary Free Text/Dictation Pt was seen and examined at bedside on 02/03/19 was POD#1 s/p c/s. Pt received spinal duramorph for post-op pain control. She had no N/V/SPANN. Exam/Review of Systems Exam Vitals Vital Signs Date Temp Pulse Resp B/P (MAP) Pulse Ox O2 O2 Flow FiO2 Time Delivery Rate 02/05/19 97.4 68 18 115/62 Room Air 09:55 (79) JOSE CESAR Feb 09, 2019 11:29
== END 2019-02-05 15:05 | disposition home or self-care (01) | DRG 788 ==
LOC: L-D 07:09 → OBT 07:09 → L-D 08:20 → OBT 08:20 → L-D 09:10 → PP1 14:44
PROVIDERS: ADMIT Obstetrics & Gynecology; ATTEND Obstetrics & Gynecology
PROC: 10D00Z1 Extraction of Products of Conception, Low, Open Approach (ICD-10-PCS; principal; 2019-02-02 10:00)
DX: O60.14X0 Preterm labor third trimester with preterm delivery third trimester, not applicable or unspecified (principal); O30.043 Twin pregnancy, dichorionic/diamniotic, third trimester; O99.214 Obesity complicating childbirth; E66.9 Obesity, unspecified; G89.18 Other acute postprocedural pain; Z3A.36 36 weeks gestation of pregnancy; Z37.2 Twins, both liveborn; Z23 Encounter for immunization
CPT/HCPCS: 81003; 85025; 85610; 85730; 86592; 86850; 86900; 86901; 87340; 88307; 90715; 99464; G0463; J0456; J0690; J1170; J1200; J1885; J2210; J2274; J2370; J2405; J2590; J3010; J7050; J7120

== ENCOUNTER 2019-02-26 23:28 | Emergency (ER) | payer OTHER ==
[~2019-02-26] VITALS: Ht 160 cm; Wt 90.9 kg
[2019-02-26 23:30] VITALS: Ht 160 cm; Wt 90.9 kg
--- NOTE | 2019-02-27 01:17 | ERD ---
ER Documentation Chief Complaint Chief Complaint Pt reports 20 days ago, has leaking from site and pain HPI This is a pleasant 38-year-old female presents for evaluation of clear liquid coming from her site. She denies any fever, she has not had any nausea, vomiting or diarrhea. She is otherwise been doing well, she denies any bleeding. ROS All systems reviewed and are negative except as per history of present illness. Medications Home Meds No Active Prescriptions or Reported Meds Allergies Allergies: Coded Allergies: No Known Allergy (Unverified , 09/24/17) PMhx/Soc History of Surgery: Yes (d&c, R wrist carpal tunnel, ) Anesthesia Reaction: No Hx Neurological Disorder: No Hx Respiratory Disorders: No Hx Cardiac Disorders: No Hx Psychiatric Problems: No Hx Miscellaneous Medical Probl: No Hx Alcohol Use: No Hx Substance Use: No (UNKNOWN WHAT KIND. ) Hx Tobacco Use: No Smoking Status: Former smoker Physical Exam Vitals Vital Signs Date Temp Pulse Resp B/P (MAP) Pulse Ox O2 O2 Flow FiO2 Time Delivery Rate 02/26/19 97.8 58 16 129/80 96 23:30 (96) Physical Exam Const: No acute distress Head: Atraumatic Eyes: Normal Conjunctiva ENT: Normal External Ears, Nose and Mouth. Neck: Full range of motion. No meningismus. Resp: Clear to auscultation bilaterally Cardio: Regular rate and rhythm, no murmurs Abd: Soft, non tender, non distended, no rebound or guarding. There is a small amount of clear drainage noted from surgical site, there is no purulence, there is no overlying erythema.. Normal bowel sounds Skin: No petechiae or rashes Back: No midline or flank tenderness Ext: No cyanosis, or edema Neur: Awake and alert Psych: Normal Mood and Affect Result Diagram: 02/26/19 0011 02/26/19 0011 Results 24 hrs Laboratory Tests Test 02/26/19 00:11 White Blood Count 7.2 10^3/ul Red Blood Count 4.44 10^6/ul Hemoglobin 12.9 g/dl Hematocrit 38.7 % Mean Corpuscular Volume 87.2 fl Mean Corpuscular Hemoglobin 29.1 pg Mean Corpuscular Hemoglobin Concent 33.3 g/dl Red Cell Distribution Width 12.7 % Platelet Count 249 10^3/UL Mean Platelet Volume 10.0 fl Immature Granulocytes % 0.300 % Neutrophils % 44.6 % Lymphocytes % 38.7 % Monocytes % 9.3 % Eosinophils % 6.5 % Basophils % 0.6 % Nucleated Red Blood Cells % 0.0 /100WBC Immature Granulocytes # 0.020 10^3/ul Neutrophils # 3.2 10^3/ul Lymphocytes # 2.8 10^3/ul Monocytes # 0.7 10^3/ul Eosinophils # 0.5 10^3/ul Basophils # 0.0 10^3/ul Nucleated Red Blood Cells # 0.0 10^3/ul Sodium Level 142 mmol/L Potassium Level 3.7 mmol/L Chloride Level 107 mmol/L Carbon Dioxide Level 25 mmol/L Anion Gap 10 Blood Urea Nitrogen 18 mg/dl Creatinine 0.70 mg/dl Est Glomerular Filtrat Rate mL/min > 60 mL/min Glucose Level 107 mg/dl Calcium Level 9.0 mg/dl Total Bilirubin 0.4 mg/dl Direct Bilirubin 0.00 mg/dl Indirect Bilirubin 0.4 mg/dl Aspartate Amino Transf (AST/SGOT) 34 IU/L Alanine Aminotransferase (ALT/SGPT) 19 IU/L Alkaline Phosphatase 104 IU/L Total Protein 6.9 g/dl Albumin 3.9 g/dl Globulin 3.00 g/dl Albumin/Globulin Ratio 1.30 Procedures/MDM 38-year-old female presents for wound check of her surgical site. Patient presents afebrile and nontoxic-appearing, with no peritoneal signs on exam. Her site appears to be healing well, there is a very small amount of clear drainage, that did not appear purulent, and the site has no evidence of infection, it appears to be healing well, the patient's labs were overall unremarkable, I discussed findings with patient, who felt comfortable with discharge home, at discharge she was in no distress. Departure Diagnosis: Primary Impression: Post-op pain Condition: Stable Patient Instructions: Post Op Wound Check, General Additional Instructions: Call your primary care doctor TOMORROW for an appointment during the next 2-3 d ays.See the doctor sooner or return here if your condition worsens before your appointment time. DANIELLE ABBOTT MD Feb 27, 2019 01:17
[2019-02-27 01:20] VITALS: BP 124/73; PULSE 71; RESP 16
== END 2019-02-27 01:21 | disposition home or self-care (01) ==
LOC: E/R 23:28
DX: O90.89 Other complications of the puerperium, not elsewhere classified (principal); G89.18 Other acute postprocedural pain
CPT/HCPCS: 80053; 85025; Z7502; 99283